=== PATIENT | female | born 2000 | race Caucasian/White ===

== ENCOUNTER 2023-07-15 18:42 | Emergency (ER) | payer BC, SELFPAY ==
[2023-07-15 18:58] VITALS: BP 122/79; PULSE 75; RESP 16; TEMP 37.1; O2SAT 98
--- NOTE | 2023-07-15 19:21 | ED.GENADULT ---
HPI - General Adult General Chief complaint: Back Pain/Injury Stated complaint: pain under right arm,nauseated Source: patient Mode of arrival: ambulatory Limitations: no limitations History of Present Illness HPI narrative: 23-year-old female presented for complaint of nausea and right chest pain radiates into the right under arm, and right shoulder blade. Onset 4 days. She denies known injury, heavy lifting, or overuse. She is taking ibuprofen, heat/ ice, or and heating pad without relief. She states she has pulled a muscle in the chest due to her work, however she states this feels different. Endorses pain is constant, has improved over the past few days but worsened again today. Last ate pizza at noon. LMP 07/10. Denies abdominal pain, vomiting, fever. Reports diarrhea yesterday. Related Data Home Medications Medication Instructions Recorded Confirmed No Home Medications 07/15/23 07/15/23 Allergies Allergy/AdvReac Type Severity Reaction Status Date / Time Penicillins Allergy Intermediate Swelling Verified 07/15/23 19:16 of Lip/Tongue/Throat Review of Systems Review of Systems: CONSTITUTIONAL: Denies body aches, fever, chills, or sweats. EYES: Denies visual changes, redness, or discharge. ENT: Denies rhinorrhea, congestion, sore throat, or otalgia. CARDIOVASCULAR: Reports right chest pain, Denies palpitations, or edema. RESPIRATORY: Denies cough or dyspnea. GASTROINTESTINAL: Reports nausea and diarrhea Denies abdominal pain, vomiting GENITOURINARY: Denies dysuria or hematuria. SKIN: Denies rash, itching, or wounds. MUSCULOSKELETAL: reports right upper back pain, denies joint pain, or myalgia. NEUROLOGIC: Denies headache, numbness, tingling, or weakness. All systems reviewed & are unremarkable except as noted in HPI and below PMFSH Past Medical History Medical History (Updated 07/16/23 @ 11:25 by Karmen Buchanan APRN) No pertinent past medical history Comments At time of signature, I have reviewed and agree with nursing past medical, surgical, social and family history unless otherwise noted. Please see nursing chart for further information. There is no relevant family history pertinent to the presenting complaint Exam Narrative: GENERAL: Well-appearing, and in no acute distress. EYES: EOMI. No redness or drainage. Conjunctivae normal. ENT: Mucous membranes pink and moist. No rhinorrhea. TMs normal bilaterally. Throat normal. Uvula midline. NECK: Normal AROM. Supple. No lymphadenopathy. CHEST: No respiratory distress. Clear to auscultation. Right anterior chest, lateral chest and scapular tenderness with palpation. Reported right chest and axilla pain when crossing arm over chest. HEART: Regular rate and rhythm. No murmur appreciated. Normal peripheral pulses. ABDOMEN: Soft, nontender, nondistended, normal active bowel sounds. EXTREMITIES: Full range of motion to BUEs. Reports pain to right chest/axilla with overhead movement and across chest. No edema. SKIN: Warm, dry, no rash. Capillary refill normal. Normal skin turgor. NEURO: No focal deficits. Alert and oriented x3. Gait steady. Course Course Emergency Course: Patient is aware of diagnosis, understands and agrees to treatment plan. Anticipatory guidance given. Patient agrees to follow-up as directed and is aware of reasons to seek care at the emergency department. Portions of this record may have been created with voice recognition software Level of Care: Express Care Visit Vital Signs Vital signs: Vital Signs Temperature 98.8 F 07/15/23 18:58 Pulse Rate 75 07/15/23 18:58 Respiratory Rate 16 07/15/23 18:58 Blood Pressure 122/79 07/15/23 18:58 Pulse Oximetry 98 07/15/23 18:58 Oxygen Delivery Room Air 07/15/23 18:58 Temperature 98.8 F 07/15/23 18:58 Pulse Rate 75 07/15/23 18:58 Respiratory Rate 16 07/15/23 18:58 Blood Pressure 122/79 07/15/23 18:58 Pulse Oximetry 9
== END 2023-07-15 19:32 | disposition short-term general hospital (02) ==
LOC: EXPCOLL 18:51
PROVIDERS: Emergency Provider Nurse Practitioner Family
DX: R07.9 Chest pain, unspecified (principal)
CPT/HCPCS: 99202; G0463

== ENCOUNTER 2024-03-07 11:36 | Outpatient (CLI) | payer OTHER, SELFPAY ==
--- NOTE | ~2024-03-07 | US_ITS ---
COMPLETE ABDOMINAL ULTRASOUND Ordering provider: Anna Chavarria, [employer]INE OPERATOR History: . fatty liver . Comparison: None. FINDINGS: LIVER: Normal size and echotexture. No focal hepatic lesions or perihepatic fluid collections are rachel ntified. Portal vein flow is normal. GALLBLADDER: Unremarkable. No evidence for stones, sludge, gallbladder wall thickening or pericholecy stic fluid collections. A negative sonographic Alvares's sign was noted. BILIARY DUCTS: No evidence for intra or extrahepatic biliary dilation. Common bile duct measures 4 mm in diameter which is within normal limits. PANCREAS: Normal echotexture and size. IMPRESSION: Unremarkable complete ultrasound of the abdomen. Reviewed, dictated and finalized at location A.
== END 2024-03-07 11:37 ==
LOC: GOSHIMG 11:41
PROVIDERS: PCP Nurse Practitioner Family; Visit Provider Nurse Practitioner Family
DX: K76.0 Fatty (change of) liver, not elsewhere classified (principal)
CPT/HCPCS: 76705